=== PATIENT | male | born 1995 | race African-American/Black ===

== ENCOUNTER 2019-12-27 15:03 | Emergency (ER) | payer SELFPAY ==
--- NOTE | 2019-12-27 15:07 | ED.GENADULT ---
HPI - General Adult General Chief complaint: Urogenital-Male Stated complaint: groin problem Time Seen by Provider: 12/27/19 15:07 Source: patient Mode of arrival: ambulatory Limitations: no limitations History of Present Illness HPI narrative: Patient is a 24-year-old male who presents for evaluation of dysuria and penile discharge. Patient reports a 3-day history of white discharge from the penis, denies penile pain, external lesions or testicle pain or swelling. No groin pain or swollen lymph nodes. No fever or chills. Patient has had 2 new partners, he states they are asymptomatic. Patient only has unprotected intercourse. He states he had a sexual transmitted infection back in July which was treated and patient had been doing well up and point. Patient denies any hematuria. Patient denies any abdominal pain. Related Data Home Medications Medication Instructions Recorded Confirmed No Home Medications 12/27/19 12/27/19 Allergies Allergy/AdvReac Type Severity Reaction Status Date / Time morphine Allergy Unknown Hives Verified 12/27/19 15:13 Review of Systems Review of Systems: Narrative: CONSTITUTIONAL: Denies fever CARDIOVASCULAR: Denies chest pain RESPIRATORY: Denies cough or dyspnea. GASTROINTESTINAL: Denies abdominal pain : Reports penile discharge, dysuria SKIN: Denies rash MUSCULOSKELETAL: Denies back pain NEUROLOGIC: Denies headache PMFSH Past Medical History Medical History Sexually transmitted infection Tooth abscess Surgical History Surgical History H/O wrist surgery Social History Social History (Updated 12/27/19 @ 15:21 by Nazanin Del Angel MD) Smoking status: Never smoker Alcohol intake: current Drinks per week: 4 Substance use: current Substance use type: marijuana Gender identity (if verbalized by the patient): Male Exam Narrative: Exam Narrative: GENERAL: Awake, alert, conversant HEAD: Normocephalic, atraumatic. EYES: PERRLA and EOMI. ENT: Nares clear, no rhinorrhea or epistaxis. Mucous membranes moist. NECK: Supple. CHEST: No respiratory distress, breathing even and non labored HEART: Regular rate, sinus rhythm ABDOMEN:Non distended, non tender EXTREMITIES: Normal range of motion. No edema. SKIN: Warm, dry, no rash. NEURO:No focal deficits. Alert and oriented x3 Course Vital Signs Vital signs: Vital Signs Temperature 36.2 C L 12/27/19 15:10 Pulse Rate 83 12/27/19 15:10 Respiratory Rate 18 12/27/19 15:10 Blood Pressure 146/56 H 12/27/19 15:10 Pulse Oximetry 98 12/27/19 15:10 Temperature 36.2 C L 12/27/19 15:10 Pulse Rate 83 12/27/19 15:10 Respiratory Rate 18 12/27/19 15:10 Blood Pressure 146/56 H 12/27/19 15:10 Pulse Oximetry 98 12/27/19 15:10 Medical Decision Making MDM Narrative Medical decision making narrative: Patient presenting for evaluation of penile discharge and dysuria. Patient has 2 new sexual partners. History of sexual transmitted infection. No fever, chills, abdominal pain, nausea or vomiting. No lesions or swollen lymph nodes. Patient denies any testicular pain or swelling. Patient urinalysis sent to evaluate for UTI, also sent for chlamydia and gonorrhea RNA. We will treat patient empirically, patient did receive treatment in the ER. Patient also advised to speak with partners, advised on the importance of contraception such as a condom. Patient does not have a urinary tract infection. He was discharged home in stable condition. Differential Diagnosis Differential Diagnosis: Sexual transmitted infection, urethritis, UTI Vital Signs Vital Signs: Vital Signs Temperature 36.2 C L 12/27/19 15:10 Pulse Rate 83 12/27/19 15:10 Respiratory Rate 18 12/27/19 15:10 Blood Pressure 146/56 H 12/27/19 15:10 Pulse Oximetry 98 12/27/19 15:10 Temperature 36.2 C L 12/27/19 1
[2019-12-27 15:10] VITALS: BP 146/56; PULSE 83; RESP 18; TEMP 36.2; O2SAT 98
[2019-12-27] MEDS: metroNIDAZOLE 250 MG TABLET 2000 MG PO (15:27)
[2019-12-27] MEDS: cefTRIAXone 250 MG VIAL IM (15:28)
[2019-12-27] MEDS: LIDOCAINE HCL 1% LOCAL INJ 20 ML VIAL (15:29)
[2019-12-27 15:33] LABS: Add Urine Microscopic? YES; Appearance Urine Clear (Clear); Bilirubin Urine Negative (Negative); Color Urine Yellow (Yellow); Glucose Urine UA Negative (Negative); Ketones Urine Negative (Negative); Leukocyte Esterase Ur Trace LEU/UL (Negative); Mucus Urine Rare /lpf; Nitrate Urine Negative (Negative); Protein Urine Negative (Negative); Specific Grav Ur 1.026 (1.001-1.035); Squamous Epithelial Cell Urine Rare /hpf (Few); Urobilinogen Urine Negative mg/dL (<2.0)
[2019-12-27] MEDS: AZITHROMYCIN 250 MG TABLET 1000 MG PO (15:33)
[2019-12-27 15:35] LABS: Blood Urine Negative (Negative)
== END 2019-12-27 16:09 | disposition home or self-care (01) ==
PROVIDERS: Emergency Provider Emergency Medicine; PCP Family Medicine
DX: A64 Unspecified sexually transmitted disease (principal); R30.0 Dysuria
CPT/HCPCS: 81001; 87086; 87088; 87491; 87591; 96372; 99283; A9270; J0696

== ENCOUNTER 2020-08-02 17:32 | Emergency (ER) | payer MEDICAID, SELFPAY ==
--- NOTE | 2020-08-02 17:42 | ED.SKABFB ---
HPI - Skin/Abscess/Foreign Bdy General Chief complaint: Skin/Abscess/Foreign Body Stated complaint: Rash on hands Time Seen by Provider: 08/02/20 17:37 Source: patient and RN notes reviewed Mode of arrival: ambulatory Limitations: no limitations History of Present Illness HPI narrative: 24-year-old male presents with concern for rash on bilateral hands. Reports yesterday he noticed small bumps on his hands. Reports the rash does not itch, burn, sting, hurt. 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 Denies any swollen lips, swollen tongue, difficulty swallowing, difficulty breathing. Denies rash in any other area. Denies any drainage from any area. MD complaint: rash Related Data Home Medications Medication Instructions Recorded Confirmed amoxicillin 500 mg PO DAILY 08/02/20 08/02/20 Allergies Allergy/AdvReac Type Severity Reaction Status Date / Time morphine Allergy Unknown Hives Verified 12/27/19 15:13 Review of Systems Review of Systems: Narrative: CONSTITUTIONAL: Denies malaise, chills, sweats, or fever. EYES: Denies visual changes, redness, or discharge. ENT: Denies swollen lips, swollen tongue CARDIOVASCULAR: Denies chest pain, palpitations, or edema. RESPIRATORY: Denies cough or dyspnea. GASTROINTESTINAL: Denies abdominal pain, nausea, vomiting, diarrhea SKIN: Reports not itchy rash on bilateral hands MUSCULOSKELETAL: Denies myalgia. All systems reviewed & are unremarkable except as noted in HPI and below PMFSH Past Medical History Medical History (Updated 08/02/20 @ 17:59 by Elke Ware NP) Sexually transmitted infection Tooth abscess Surgical History Surgical History H/O wrist surgery Social History Social History (Updated 12/27/19 @ 15:21 by Nazanin Del Angel MD) Smoking status: Never smoker Alcohol intake: current Drinks per week: 4 Substance use: current Substance use type: marijuana Gender identity (if verbalized by the patient): Male Comments At time of signature, agree with nursing past medical, surgical, social and family history. There is no relevant family history pertinent to the presenting complaint Exam Narrative: Exam Narrative: GENERAL: Well-appearing, well-nourished, and in no acute distress. HEAD: Normocephalic, atraumatic. EYES: PERRLA, conjunctivae clear, and EOMI. ENT: Mucous membranes moist. Oropharynx without edema, erythema or lesions. NECK: Supple. No lymphadenopathy CHEST: Clear to auscultation. No respiratory distress. HEART: Regular rate and rhythm. SKIN: Warm, dry. Scattered skin colored papules on bilateral hands, no other rash noted no surrounding erythema edema or induration. NEURO: Alert and oriented x3. PSYCH: Normal mood and affect Course Course Emergency Course: Patient is aware of diagnosis, understands and agrees to treatment plan. Anticipatory guidance given. Patient agrees to follow-up as directed and is aware of reasons to seek care at the emergency department. Portions of this record may have been created with voice recognition software Vital Signs Vital signs: Vital Signs Temperature 97.4 F L 08/02/20 17:45 Pulse Rate 84 08/02/20 17:45 Respiratory Rate 18 08/02/20 17:45 Blood Pressure 166/72 H 08/02/20 17:45 Pulse Oximetry 100 08/02/20 17:45 Temperature 97.4 F L 08/02/20 17:45 Pulse Rate 84 08/02/20 17:45 Respiratory Rate 18 08/02/20 17:45 Blood Pressure 166/72 H 08/02/20 17:45 Pulse Oximetry 100 08/02/20 17:45 Reviewed. MDM - Skin/Abscess/Foreign Bdy MDM Narrative Medical decision making narrative: Does not appear at this time to be erythema multiforme, bullous, SJS, TEN; no evidence at this time to suggest RMSF, endocarditis or Lyme disease; patient looks well, nontoxic and is tolerating oral intake; no neurologic signs or symptoms; no headache, photophobia or neck pain; afebrile; appropriate for initia
[2020-08-02 17:45] VITALS: BP 166/72; PULSE 84; RESP 18; TEMP 36.3; O2SAT 100
== END 2020-08-02 18:02 | disposition home or self-care (01) ==
PROVIDERS: Emergency Provider Nurse Practitioner
DX: R21 Rash and other nonspecific skin eruption (principal)
CPT/HCPCS: 99213; G0463

== ENCOUNTER 2022-04-13 14:23 | Emergency (ER) | payer SELFPAY ==
[2022-04-13 14:35] VITALS: BP 156/78; PULSE 84; RESP 16; TEMP 36.7; O2SAT 98
[2022-04-13] MEDS: TETANUS,DIPHTHERIA,AC PERTUSSIS ADULT (0.5 ML) BOOSTRIX IM (15:19)
[2022-04-13] MEDS: LIDOCAINE HCL 1% LOCAL INJ 2 ML AMPUL 6 ML INFILTRATE (15:20)
--- NOTE | 2022-04-13 15:54 | ED.WOUNDLAC ---
HPI - Wound/Laceration General Chief Complaint: Wound/Laceration Stated Complaint: laceration left hand Time Seen by Provider: 04/13/22 15:11 Source: patient Mode of arrival: ambulatory Limitations: no limitations History of Present Illness HPI narrative: Patient presents today with a laceration to his left hand. States he was at work and put his hand down on of bleed just prior to arrival. Reports tingling to the 2nd finger. He is not up-to-date on his tetanus vaccine. He is currently pain-free. Related Data Allergies Allergy/AdvReac Type Severity Reaction Status Date / Time morphine Allergy Unknown Hives Verified 04/13/22 14:32 Review of Systems Review of Systems: CONSTITUTIONAL: Denies body aches, fever, chills, or sweats. EYES: Denies visual changes, redness, or discharge. ENT: Denies rhinorrhea, congestion, sore throat, or otalgia. CARDIOVASCULAR: Denies chest pain, palpitations, or edema. RESPIRATORY: Denies cough or dyspnea. GASTROINTESTINAL: Denies abdominal pain, nausea, vomiting, or diarrhea. GENITOURINARY: Denies dysuria or hematuria. SKIN: Denies rash, itching. + Laceration left hand MUSCULOSKELETAL: Denies back pain, joint pain, or myalgia. NEUROLOGIC: Denies headache, numbness, tingling, or weakness. PSYCH: Denies depression or anxiety. PMFSH Past Medical History Medical History Sexually transmitted infection Tooth abscess Surgical History Surgical History H/O wrist surgery Social History Social History Smoking status: Never smoker Alcohol intake: current Drinks per week: 4 Substance use: current Substance use type: marijuana Gender identity (if verbalized by the patient): Male Comments At time of signature, I have reviewed and agree with nursing past medical, surgical, social and family history unless otherwise noted. Please see nursing chart for further information. There is no relevant family history pertinent to the presenting complaint Exam Narrative: GENERAL: Well-appearing, well-nourished, and in no acute distress. HEAD: Normocephalic, atraumatic. EYES: EOMI. No redness or drainage. Conjunctivae normal. ENT: Mucous membranes pink and moist. NECK: Normal AROM. CHEST: No respiratory distress. EXTREMITIES: Normal range of motion. No edema. SKIN: Warm, dry, no rash. Capillary refill normal. Normal skin turgor. 2 cm full-thickness flap laceration to the palmar aspect of the left hand At the base of the 2nd finger. Distal sensation intact. Capillary refill normal. Patient has full range of motion of the 2nd and 3rd finger against resistance. NEURO: No focal deficits. Alert and oriented x3. Gait steady. PSYCH: Normal affect. No signs of depression or anxiety. Course Course Level of Care: Express Care Visit Vital Signs Vital signs: Vital Signs Temperature 98.1 F 04/13/22 14:35 Pulse Rate 84 04/13/22 14:35 Respiratory Rate 16 04/13/22 14:35 Blood Pressure 156/78 H 04/13/22 14:35 Pulse Oximetry 98 04/13/22 14:35 Oxygen Delivery Room Air 04/13/22 14:35 Temperature 98.1 F 04/13/22 14:35 Pulse Rate 84 04/13/22 14:35 Respiratory Rate 16 04/13/22 14:35 Blood Pressure 156/78 H 04/13/22 14:35 Pulse Oximetry 98 04/13/22 14:35 Oxygen Delivery Room Air 04/13/22 14:35 Reviewed. Pt has been instructed to follow up with his PCP regarding his elevated blood pressure today. Procedures Laceration Laceration 1: Date: 04/13/22 Time: 15:57 Site: hand Side (If applicable): left Size (cm): 2 Description: flap Depth: simple, single layer Local Anesthetic: lidocaine 1% Amount of anesthesia used (mL): 4 Pre-repair: wound explored and irrigated ====== Skin Level ====== Sk
== END 2022-04-13 16:05 | disposition home or self-care (01) ==
PROVIDERS: Emergency Provider Nurse Practitioner
DX: S61.412A Laceration without foreign body of left hand, initial encounter (principal); Z23 Encounter for immunization; W45.8XXA Other foreign body or object entering through skin, initial encounter; Y99.0 Civilian activity done for income or pay
CPT/HCPCS: 12001; 90471; 90715; 99212; G0463

== ENCOUNTER 2024-03-24 20:55 | Emergency (ER) | payer SELFPAY ==
[2024-03-24 20:57] VITALS: BP 131/61; PULSE 84; RESP 18; TEMP 36.6; O2SAT 99
--- NOTE | 2024-03-24 22:18 | PC.NURSE ---
Patient comes to desk and states I am just going to go home, I'll deal with this another time. Patient educated on risks of leaving before being evaluated and benefits of staying for evaluation by a provider. Patient verbalized understanding. Patient ambulated out of the ED with steady gait with belongings in hand.
== END 2024-03-24 22:44 | disposition left against medical advice (07) ==
LOC: ANHED 22:38
DX: R10.9 Unspecified abdominal pain (principal)
CPT/HCPCS: 99199